=== PATIENT | male | born 1945 | race Caucasian/White ===

== ENCOUNTER 2017-11-22 11:36 | Emergency (ER) | payer MEDICARE, OTHER ==
[~2017-11-22] VITALS: Ht 180.3 cm; Wt 72.6 kg
[~2017-11-22 11:36] MED LIST: ALBIPROI INH; ALBU90OI61 INH; ALMASICH PO; ALUMAGSIMA PO; AMLO5 PO; ASCO500 PO; ASPI81CH PO; ASPI81EC PO; ATEN50 PO; ATORVASTATIN CA20 MG PO; AZIT250 PO; COMBIVENT RESPIM4 GM INH; EZET10-10 PO; EZET10-20 PO; FLUSAL2505 IH; HYDCHL12.5 PO; IBUP600 PO; IPRAOI INH; ISOMON30 PO; Isosorbide Mono30 MG PO; Isosorbide Mono60 MG PO; LIDO5TP TOP; LISHYD1012 PO; LOSA50 PO; LOSARTAN POTAS100 MG PO; METO50ER PO; MULTI VIT QD; MULVITMIND PO; NEBI10 PO; Norco 5-325 Ta1 EACH PO; OLME20-12. PO; OMEP20ER PO; Omeprazole20 M1 PO; POTBIC25; POTCHL20ER PO; PRED20 PO; Prednisone20 MG PO; RANO500T PO; Triamcinolone A15 G3 TP
[2017-11-22] MEDS ORDERED: NEBI5 PO (12:43)
[2017-11-22] MEDS ORDERED: POTCHL10ER PO (12:43)
[2017-11-22 12:45] LABS: BASOPHILS ABSOLUTE AUTO 0.03 K/mm3 (0.00-0.23); BASOPHILS PERCENT AUTO 0 % (0-2); EOSINOPHILS ABSOLUTE AUTO 0.25 K/mm3 (0.00-0.68); EOSINOPHILS PERCENT AUTO 3 % (0-6); Hematocrit 39.7 % (37.0-53.0); Hemoglobin 12.6 g/dL (13.5-17.5); IMMATURE GRAN ABSOLUTE AUTO 0.04 K/mm3 (0.00-0.10); IMMATURE GRAN PERCENT AUTO 1 % (0-1); LYMPHOCYTES ABSOLUTE AUTO 1.85 K/mm3 (0.84-5.20); LYMPHOCYTES PERCENT AUTO 21 % (21-46); MONOCYTES ABSOLUTE AUTO 0.72 K/mm3 (0.16-1.47); MONOCYTES PERCENT AUTO 8 % (4-13); Mean Corpuscular HGB Conc 31.7 g/dL (31.5-36.5); Mean Corpuscular Volume 92 fL (80-100); Mean Platelet Volume 8.9 fL (9.1-12.4); NEUTROPHILS ABSOLUTE AUTO 5.91 K/mm3 (1.96-9.15); NEUTROPHILS PERCENT AUTO 67 % (41-73); Platelet Count 214 K/mm3 (150-400); RDW Coefficient Variation 14.2 % (11.7-14.2); RDW Standard Deviation 48.1 fL (35.1-46.3); Red Blood Cell Count 4.34 M/mm3 (4.30-5.90)
[2017-11-22 13:00] LABS: Alanine Aminotransfer (ALT/SGP 64 U/L (12-78); Albumin/Globulin Ratio 0.6 (0.8-1.8); Alk Phos 100 U/L (50-136); Anion Gap 4 mmol/L (6-16); Aspartate Aminotrans (AST/SGOT 48 U/L (12-37); Bilirubin, Total 0.5 mg/dL (0.1-1.0); Blood Urea Nitrogen 28 mg/dL (8-24); Bun/Creatinine Ratio 26.4 (12.0-20.0); CO2, Blood 27 mmol/L (21-32); Chloride, Blood 108 mmol/L (98-108); Creatinine, Blood 1.06 mg/dL (0.60-1.20); Globulin, Blood 5.4 g/dL (2.2-4.0); Glomerular Filtration Rate >60 (60-); Glucose, Blood 85 mg/dL (70-99); Potassium, Blood 4.5 mmol/L (3.5-5.5); Sodium, Blood 139 mmol/L (136-145); Total Protein, Blood 8.4 g/dL (6.4-8.2); Troponin I <0.015 ng/mL (0.000-0.040)
== END 2017-11-22 14:01 | disposition home or self-care (01) ==
LOC: ER 11:36
PROVIDERS: Emergency Medicine
DX: R55 Syncope and collapse (principal); E86.0 Dehydration; Z79.899 Other long term (current) drug therapy; Z79.82 Long term (current) use of aspirin; Z79.52 Long term (current) use of systemic steroids; I10 Essential (primary) hypertension; J44.9 Chronic obstructive pulmonary disease, unspecified; I25.2 Old myocardial infarction; Z87.891 Personal history of nicotine dependence
CPT/HCPCS: 36415; 71046; 80053; 84484; 85025; 93005; 93010; 96360; 99283; J7030

== ENCOUNTER → 2020-07-05 | Outpatient (CLI) | payer MEDICARE, OTHER ==
[~2020-07-05] MED LIST changes: +NEBI5 PO; +POTCHL10ER PO
[2020-07-07 05:50] LABS: Stool Occult Bld Immuno 1 Negative (NEGATIVE)
== END | disposition home or self-care (01) ==
LOC: LAB SHORT 09:30 → LAB 09:30
PROVIDERS: Family Medicine
DX: D64.9 Anemia, unspecified (principal)
CPT/HCPCS: G0328

== ENCOUNTER 2020-12-15 09:52 | Observation (INO) | payer MEDICARE, OTHER ==
[~2020-12-15] VITALS: Ht 177.8 cm; Wt 66.7 kg
[~2020-12-15 09:52] MED LIST changes: +Aspirin EC81 MG PO; +COMBIVENT RESPIM4 G1 INH; +Hair, Skin & N1 EACH PO; -MULVITMIND PO; +RANEXA1000 M1 PO; -RANO500T PO
[2020-12-15] MEDS ORDERED: ISODIN10 PO (10:09)
[2020-12-15] MEDS ORDERED: FUROSEMIDE20 MG PO (10:09)
[2020-12-15] MEDS ORDERED: NITR.4SL SL (10:10)
[2020-12-15 10:30] LABS: BASOPHILS ABSOLUTE AUTO 0.02 K/mm3 (0.00-0.23); BASOPHILS PERCENT AUTO 0 % (0-2); EOSINOPHILS ABSOLUTE AUTO 0.22 K/mm3 (0.00-0.68); EOSINOPHILS PERCENT AUTO 3 % (0-6); Hemoglobin 10.3 g/dL (13.5-17.5); IMMATURE GRAN ABSOLUTE AUTO 0.03 K/mm3 (0.00-0.10); IMMATURE GRAN PERCENT AUTO 0 % (0-1); LYMPHOCYTES ABSOLUTE AUTO 1.46 K/mm3 (0.84-5.20); LYMPHOCYTES PERCENT AUTO 22 % (21-46); MONOCYTES ABSOLUTE AUTO 0.49 K/mm3 (0.16-1.47); MONOCYTES PERCENT AUTO 7 % (4-13); Mean Corpuscular HGB 27.6 pg (26.0-34.0); Mean Corpuscular HGB Conc 31.2 g/dL (31.5-36.5); Mean Corpuscular Volume 89 fL (80-100); Mean Platelet Volume 9.3 fL (9.1-12.4); NEUTROPHILS ABSOLUTE AUTO 4.54 K/mm3 (1.96-9.15); NEUTROPHILS PERCENT AUTO 67 % (41-73); Platelet Count 171 K/mm3 (150-400); RDW Coefficient Variation 17.2 % (11.7-14.2); RDW Standard Deviation 55.1 fL (35.1-46.3); Red Blood Cell Count 3.73 M/mm3 (4.30-5.90); White Blood Cell Count 6.76 K/mm3 (4.00-11.30)
[2020-12-15 10:40] LABS: Alanine Aminotransfer (ALT/SGP 60 U/L (12-78); Albumin, Blood 3.1 g/dL (3.4-5.0); Albumin/Globulin Ratio 0.7 (0.8-1.8); Alk Phos 105 U/L (50-136); Anion Gap 1 mmol/L (6-16); Aspartate Aminotrans (AST/SGOT 41 U/L (12-37); Bilirubin, Total 0.4 mg/dL (0.1-1.0); Blood Urea Nitrogen 33 mg/dL (8-24); Bun/Creatinine Ratio 30.3 (12.0-20.0); CO2, Blood 29 mmol/L (21-32); Calcium, Blood 8.6 mg/dL (8.5-10.1); Chloride, Blood 108 mmol/L (98-108); Creatinine, Blood 1.09 mg/dL (0.60-1.20); Globulin, Blood 4.6 g/dL (2.2-4.0); Glomerular Filtration Rate >60 (60-); Glucose, Blood 116 mg/dL (70-99); Potassium, Blood 4.3 mmol/L (3.5-5.5); Sodium, Blood 138 mmol/L (136-145); Total Protein, Blood 7.7 g/dL (6.4-8.2); Troponin I <0.015 ng/mL (0.000-0.040)
[2020-12-15] MEDS ORDERED: FLUTICASONE-SA1 EAC9 INH (13:20)
--- NOTE | 2020-12-15 18:57 | NUR ---
SHIFT SUMMARY PT ADMITTED TO UNIT FROM ED AT 1750 THIS SHIFT. PT A&OX4, ABLE TO MAKE NEEDS KNOWN. PLEASANT AND COOPERATIVE TO CARE. [place], RIMMA HEARING AIDS IN PLACE. PT IS A GOOD HISTORIAN. NO C/O PAIN OR ANY DISCOMFORT UPON ASSESSMENT. NO C/O CP, SOB, OR N&V. LS DIM T/O, RESPS E/U IN RA. PT ON TELE AT NSR 71 BPM. BED AT LOWEST POSITION. CALL LIGHT WITHIN REACH. GAVE REPORT TO MAGDALENA ASHER.
[2020-12-15 21:40] LABS: Stool Occult Bld Immuno 1 Negative (NEGATIVE)
[2020-12-16 02:21] LABS: BASOPHILS ABSOLUTE AUTO 0.02 K/mm3 (0.00-0.23); BASOPHILS PERCENT AUTO 0 % (0-2); EOSINOPHILS ABSOLUTE AUTO 0.19 K/mm3 (0.00-0.68); EOSINOPHILS PERCENT AUTO 4 % (0-6); Hematocrit 29.8 % (37.0-53.0); Hemoglobin 9.7 g/dL (13.5-17.5); IMMATURE GRAN ABSOLUTE AUTO 0.01 K/mm3 (0.00-0.10); IMMATURE GRAN PERCENT AUTO 0 % (0-1); LYMPHOCYTES ABSOLUTE AUTO 1.55 K/mm3 (0.84-5.20); LYMPHOCYTES PERCENT AUTO 29 % (21-46); MONOCYTES ABSOLUTE AUTO 0.46 K/mm3 (0.16-1.47); MONOCYTES PERCENT AUTO 9 % (4-13); Mean Corpuscular HGB 27.7 pg (26.0-34.0); Mean Corpuscular HGB Conc 32.6 g/dL (31.5-36.5); Mean Corpuscular Volume 85 fL (80-100); Mean Platelet Volume 9.1 fL (9.1-12.4); NEUTROPHILS ABSOLUTE AUTO 3.14 K/mm3 (1.96-9.15); NEUTROPHILS PERCENT AUTO 58 % (41-73); Platelet Count 140 K/mm3 (150-400); RDW Coefficient Variation 16.9 % (11.7-14.2); RDW Standard Deviation 52.3 fL (35.1-46.3); White Blood Cell Count 5.37 K/mm3 (4.00-11.30)
[2020-12-16 02:41] LABS: Alanine Aminotransfer (ALT/SGP 48 U/L (12-78); Albumin, Blood 2.9 g/dL (3.4-5.0); Albumin/Globulin Ratio 0.7 (0.8-1.8); Alk Phos 97 U/L (50-136); Anion Gap 3 mmol/L (6-16); Aspartate Aminotrans (AST/SGOT 36 U/L (12-37); Bilirubin, Total 0.4 mg/dL (0.1-1.0); Blood Urea Nitrogen 25 mg/dL (8-24); Bun/Creatinine Ratio 22.5 (12.0-20.0); CO2, Blood 26 mmol/L (21-32); Calcium, Blood 8.3 mg/dL (8.5-10.1); Chloride, Blood 107 mmol/L (98-108); Creatinine, Blood 1.11 mg/dL (0.60-1.20); Globulin, Blood 3.9 g/dL (2.2-4.0); Glomerular Filtration Rate >60 (60-); Glucose, Blood 76 mg/dL (70-99); Potassium, Blood 4.1 mmol/L (3.5-5.5); Sodium, Blood 136 mmol/L (136-145); Total Protein, Blood 6.8 g/dL (6.4-8.2); Troponin I <0.015 ng/mL (0.000-0.040)
--- NOTE | 2020-12-16 05:34 | NUR ---
PT IS A/O, AND VERY PLEASANT. TELE IN SR, NEGATIVE GUIAC RESULTS THIS SHIFT, PT WALKS TO RESTROOM WITH STABLE GAIT, KALISPEL. PT AWAITING CARDIOLOGY CONSULT TODAY.
--- NOTE | 2020-12-16 12:09 | NUR ---
Echocardiogram performed
--- NOTE | 2020-12-16 14:02 | NUR ---
ADMIT: 12/15/20 DISCHARGE: 12/16/20 DX: Syncope CC: [email or web address] [facility] CALL: pt at [phone] ([facility] clinic, 1 week) RESIDENCE: home CAREGIVER: Gricel Hassan, Family Member, [phone] DX: HTN, vertigo, CKD-stage 3, CHF, COPD, see list DME: none CCM: none HOME HEALTH: none SUMMARY: Admit: 12/15/20 12/16/20- Per chart review with Dr. Cortez, pt has had CABG x2 and there does not appear to be any further option for revascularization treatment. Cardiology has consulted on pt while in the hospital. Chest CT and echocardiogram was ordered and completed. Chest CT showed that pt has 10mm right upper lobe pulmonary nodule and several smaller nodules. Zio patch is ordered for pt to have placed at discharge. Met with pt and reviewed [facility] letter with pt. Pt reports that his sister will be the one to come get him and take him home and she will be able to help him with any needs in the home. His pharmacy is [facility]. Pt reports that there are 2 small stairs to get into the home and he does not have any concerns using them. Pt stated that he does not have any concerns about going home. -ascencion
--- NOTE | 2020-12-16 16:57 | NUR ---
DISCHARGE SUMMARY PT DISCHARGE TODAY AT APPROX 1650. PRIOR TO DISCHARGE, PT SEEN BY CARDIOLOGY STAFF FOR ZIO MONITOR PLACEMENT. NO ISSUES OR COMPLAINTS NOTED TO PT DURING DISCHARGE PROCESS. NO ACUTE CHANGES NOTED TO PT THIS SHIFT. NO C/O PAIN OR ANY DISCOMFORT. REVIEWED D/C ORDERS. PT VERBALIZED UNDERSTANDING OF DISCHARGE ORDERS. DISCHARGE PAPERWORK GIVEN TO PT UPON DISCHARGE. IV ACCESS AND TELE MONITOR DISCONTINUED.
== END 2020-12-16 16:47 | disposition home or self-care (01) ==
LOC: ER 09:52 → MEDS 09:53 → ER 09:53 → MEDS 09:54 → ER 15:38 → MEDS 15:38
PROVIDERS: Emergency Medicine; ADMIT Student in an Organized Health Care Education/Training Program
DX: R55 Syncope and collapse (principal); N39.498 Other specified urinary incontinence; I11.0 Hypertensive heart disease with heart failure; I50.32 Chronic diastolic (congestive) heart failure; I25.118 Atherosclerotic heart disease of native coronary artery with other forms of angina pectoris; J44.9 Chronic obstructive pulmonary disease, unspecified; I25.2 Old myocardial infarction; E78.5 Hyperlipidemia, unspecified; K21.9 Gastro-esophageal reflux disease without esophagitis; D50.9 Iron deficiency anemia, unspecified; R05 Cough; I95.1 Orthostatic hypotension; R00.1 Bradycardia, unspecified; R91.1 Solitary pulmonary nodule; R63.4 Abnormal weight loss; K74.60 Unspecified cirrhosis of liver; I87.2 Venous insufficiency (chronic) (peripheral); Z95.1 Presence of aortocoronary bypass graft; Z79.82 Long term (current) use of aspirin; Z87.891 Personal history of nicotine dependence; Z79.899 Other long term (current) drug therapy
CPT/HCPCS: 36415; 70450; 71045; 71260; 80053; 82274; 83880; 84484; 85025; 93005; 93010; 93246; 93306; 93880; 94640; 94760; 99285-25; A9270; A9270-GY; G0378; J1650; Q9967

== ENCOUNTER → 2023-08-21 | Outpatient (CLI) | payer MEDICARE, OTHER ==
[~2023-08-21] MED LIST changes: +FLUTICASONE-SA1 EAC9 INH; +FUROSEMIDE20 MG PO; +ISODIN10 PO; +NITR.4SL SL
[2023-08-23 12:00] LABS: Stool Occult Bld Immuno 1 Negative (NEGATIVE)
== END ==
LOC: LAB SHORT 23:30 → LAB 23:30
PROVIDERS: Family Medicine
DX: D64.9 Anemia, unspecified (principal)
CPT/HCPCS: 82274

== ENCOUNTER 2023-08-23 13:34 | Emergency (ER) | payer MEDICARE, OTHER ==
[~2023-08-23] VITALS: Ht 177.8 cm; Wt 59.9 kg
[2023-08-23 14:36] LABS: BASOPHILS ABSOLUTE AUTO 0.03 K/mm3 (0.00-0.23); BASOPHILS PERCENT AUTO 1 % (0-2); EOSINOPHILS ABSOLUTE AUTO 0.19 K/mm3 (0.00-0.68); EOSINOPHILS PERCENT AUTO 3 % (0-6); Hematocrit 38.2 % (37.0-53.0); Hemoglobin 12.4 g/dL (13.5-17.5); IMMATURE GRAN ABSOLUTE AUTO 0.01 K/mm3 (0.00-0.10); IMMATURE GRAN PERCENT AUTO 0 % (0-1); LYMPHOCYTES ABSOLUTE AUTO 1.74 K/mm3 (0.84-5.20); LYMPHOCYTES PERCENT AUTO 31 % (21-46); MONOCYTES ABSOLUTE AUTO 0.55 K/mm3 (0.16-1.47); MONOCYTES PERCENT AUTO 10 % (4-13); Mean Corpuscular HGB 30.1 pg (26.0-34.0); Mean Corpuscular HGB Conc 32.5 g/dL (31.5-36.5); Mean Corpuscular Volume 93 fL (80-100); Mean Platelet Volume 9.8 fL (9.1-12.4); NEUTROPHILS PERCENT AUTO 55 % (41-73); Platelet Count 191 K/mm3 (150-400); RDW Coefficient Variation 15.1 % (11.7-14.2); RDW Standard Deviation 51.2 fL (35.1-46.3); Red Blood Cell Count 4.12 M/mm3 (4.30-5.90); White Blood Cell Count 5.62 K/mm3 (4.00-11.30)
[2023-08-23 14:47] LABS: Albumin/Globulin Ratio 0.6 (0.8-1.8); Bilirubin, Total 0.5 mg/dL (0.1-1.0); Bun/Creatinine Ratio 21.6 (12.0-20.0); Calcium, Blood 9.3 mg/dL (8.5-10.1); Creatinine, Blood 1.25 mg/dL (0.60-1.20); Globulin, Blood 5.1 g/dL (2.2-4.0); Potassium, Blood 4.9 mmol/L (3.5-5.5); Total Protein, Blood 8.1 g/dL (6.4-8.2)
[2023-08-23 16:00] VITALS: BP 132/62
== END 2023-08-23 16:34 | disposition home or self-care (01) ==
LOC: ER 13:34
PROVIDERS: Emergency Medicine
DX: R55 Syncope and collapse (principal); I10 Essential (primary) hypertension; J44.9 Chronic obstructive pulmonary disease, unspecified; I25.2 Old myocardial infarction; Z79.82 Long term (current) use of aspirin; Z79.899 Other long term (current) drug therapy; Z87.891 Personal history of nicotine dependence
CPT/HCPCS: 80053; 85025; 93005; 93010; 99284-25

== ENCOUNTER 2024-07-30 13:46 | Inpatient (IN) | payer MEDICARE, OTHER ==
[2024-07-30] VITALS (7 sets, daily range): BP systolic 86–136; BP diastolic 65–88
[~2024-07-30] VITALS: Ht 172.7 cm; Wt 61.3 kg
[~2024-07-30 13:46] MED LIST changes: -Omeprazole20 M1 PO
[2024-07-30] MEDS ORDERED: Ipratropium/Albuterol SulF 2.5-0.5MG/3 ML Amp INH PRN (14:10)
[2024-07-30 14:45] LABS: BASOPHILS ABSOLUTE AUTO 0.02 K/mm3 (0.00-0.23); BASOPHILS PERCENT AUTO 0 % (0-2); EOSINOPHILS ABSOLUTE AUTO 0.11 K/mm3 (0.00-0.68); EOSINOPHILS PERCENT AUTO 1 % (0-6); Hematocrit 34.5 % (37.0-53.0); Hemoglobin 11.2 g/dL (13.5-17.5); IMMATURE GRAN ABSOLUTE AUTO 0.02 K/mm3 (0.00-0.10); IMMATURE GRAN PERCENT AUTO 0 % (0-1); LYMPHOCYTES ABSOLUTE AUTO 1.54 K/mm3 (0.84-5.20); LYMPHOCYTES PERCENT AUTO 19 % (21-46); MONOCYTES ABSOLUTE AUTO 1.08 K/mm3 (0.16-1.47); MONOCYTES PERCENT AUTO 14 % (4-13); Mean Corpuscular HGB 30.4 pg (26.0-34.0); Mean Corpuscular HGB Conc 32.5 g/dL (31.5-36.5); Mean Corpuscular Volume 94 fL (80-100); Mean Platelet Volume 9.9 fL (9.1-12.4); NEUTROPHILS ABSOLUTE AUTO 5.24 K/mm3 (1.96-9.15); NEUTROPHILS PERCENT AUTO 66 % (41-73); Platelet Count 203 K/mm3 (150-400); RDW Coefficient Variation 15.9 % (11.7-14.2); RDW Standard Deviation 54.2 fL (35.1-46.3); Red Blood Cell Count 3.68 M/mm3 (4.30-5.90); White Blood Cell Count 8.01 K/mm3 (4.00-11.30)
[2024-07-30 15:08] LABS: Albumin/Globulin Ratio 0.6 (0.8-1.8); Bilirubin, Total 1.2 mg/dL (0.1-1.0); Calcium, Blood 9.3 mg/dL (8.5-10.1); Creatinine, Blood 1.5 mg/dL (0.60-1.20); Globulin, Blood 5.1 g/dL (2.2-4.0); Potassium, Blood 4.8 mmol/L (3.5-5.5); Total Protein, Blood 8.1 g/dL (6.4-8.2)
[2024-07-30] MEDS ORDERED: METOPROLOL SUCC25 MG PO (15:14)
[2024-07-30] MEDS ORDERED: Isosorbide Dinit5 MG PO (15:15)
[2024-07-30] MEDS ORDERED: BREZTRI AEROS10.7 GM INH (15:16)
[2024-07-30] MEDS ORDERED: K-TAB ER20 ME1 PO (15:17)
[2024-07-30] MEDS ORDERED: Iron Chews15 MG PO (15:19)
[2024-07-30] MEDS ORDERED: VITAMIN D31000 UNI1 PO (15:19)
[2024-07-30] MEDS ORDERED: COQ-10100 MG PO (15:20)
[2024-07-30 16:56] LABS: Anti-Xa UFH, PHA Monitoring <0.10 IU/mL; Prothrombin Time Results 12.7 Sec (9.7-11.5)
[2024-07-30] MEDS ORDERED: Heparin Sodium 5000 Units/ML 1ML MDV IV ONE (17:05)
[2024-07-30] MEDS ORDERED: Heparin Sodium,Porcine/0.5 NS 500 ML IV SCH (17:05)
[2024-07-30] MEDS ORDERED: Nitroglycerin 0.4 MG SUBL SL PRN (17:50)
[2024-07-30] MEDS ORDERED: Ondansetron HCl 2 MG / ML 2ML Vial IV PRN (18:05)
[2024-07-30] MEDS ORDERED: Metoclopramide HCl 5MG / ML 2ML Vial IV PRN (18:10)
[2024-07-30] MEDS ORDERED: Temazepam 15 MG Cap PO PRN (18:10)
[2024-07-30] MEDS ORDERED: FLU VACC TS2024-25(6MOS UP)/PF 45 MCG/0.5 ML SYRINGE IM SCH (18:10)
[2024-07-30] MEDS ORDERED: Ondansetron 4 MG TAB PO PRN (18:10)
[2024-07-30] MEDS ORDERED: Acetaminophen 325 MG TABLET PO PRN (18:10)
[2024-07-30] MEDS ORDERED: Atorvastatin 40 MG Tab PO SCH (21:00)
[2024-07-30] MEDS ORDERED: Ranolazine 500 MG ER Tablet PO SCH (21:00)
[2024-07-30] MEDS ORDERED: Misc. Inhaler INH SCH (21:00)
[2024-07-30] MEDS ORDERED: Furosemide 40 MG Tab PO SCH (21:00)
--- NOTE | 2024-07-30 21:01 | NUR ---
NPO ORDER. PT DOES NOT HAVE TO BE NPO UNTIL THE AM PER MD. NPO FOR POSSIBLE CARDIAC INTERVENTIONS 07-31-24.
--- NOTE | 2024-07-30 22:08 | NUR ---
[facility] DOES NOT CARRY THIS MED. WILL NEED TO BE BROUGHT IN FROM HOME AND VERIFIED BY PHARMACY.
--- NOTE | 2024-07-30 23:44 | NUR ---
TRANSFER NOTE PT TRANSFERED VIA WC FROM ICU 8 TO PCU 4. RECEIVED BEDSIDE REPORT FROM SENIOR PARALEGAL SHILA CASTRO. PT A/Ox4 AND COOPERATIVE WITH CARE. [place], BUT ABLE TO MAKE HIS NEEDS KNOWN. CARDIAC, TELEMETRY SHOWS SR-ST 90-100'S WITH NO REPORTS OF CP, PRESSURE OR DIZZINESS. SBP STABLE RANGING 130'S. RESPIRATORY, LS CLEAR BUT DIM IN THE BASES. MAINTAINING SPO2 >95% ON 2L NC. ENDORSES MILD EXERTIONAL DYSPNEA, NO SOB AT REST. GI/, BS PRESENT IN ALL QUADRANTS. DENIES N/V/D OR ABD TENDERNESS. SKIN C/D/I, BUT FRAGILE SKIN WITH SCATTERED BRUISING NOTED. OPEN WOUND NOTED ON LEFT FOOT FROM [facility], FOLLOWED OUTPATIENT BY PODIATRY PER PT. 1x18g INFUSING HEPARIN PER EMAR IN [facility]. NO NEW ORDERS AT THIS TIME. LAZARO ROSEN UPON ARRIVAL TO PCU.
[2024-07-31] VITALS (22 sets, daily range): BP systolic 80–139; BP diastolic 49–85
[2024-07-31] MEDS ORDERED: Dose Adjust by Pharmacy XX STA (01:22)
[2024-07-31 03:39] LABS: BASOPHILS ABSOLUTE AUTO 0.01 K/mm3 (0.00-0.23); BASOPHILS PERCENT AUTO 0 % (0-2); EOSINOPHILS PERCENT AUTO 2 % (0-6); Hematocrit 28.5 % (37.0-53.0); Hemoglobin 9.3 g/dL (13.5-17.5); IMMATURE GRAN ABSOLUTE AUTO 0.02 K/mm3 (0.00-0.10); IMMATURE GRAN PERCENT AUTO 0 % (0-1); LYMPHOCYTES ABSOLUTE AUTO 1.22 K/mm3 (0.84-5.20); LYMPHOCYTES PERCENT AUTO 21 % (21-46); MONOCYTES ABSOLUTE AUTO 0.76 K/mm3 (0.16-1.47); MONOCYTES PERCENT AUTO 13 % (4-13); Mean Corpuscular HGB 30.8 pg (26.0-34.0); Mean Corpuscular HGB Conc 32.6 g/dL (31.5-36.5); Mean Corpuscular Volume 94 fL (80-100); Mean Platelet Volume 9.6 fL (9.1-12.4); NEUTROPHILS ABSOLUTE AUTO 3.72 K/mm3 (1.96-9.15); NEUTROPHILS PERCENT AUTO 64 % (41-73); Platelet Count 120 K/mm3 (150-400); RDW Coefficient Variation 15.7 % (11.7-14.2); RDW Standard Deviation 54.1 fL (35.1-46.3); Red Blood Cell Count 3.02 M/mm3 (4.30-5.90); White Blood Cell Count 5.83 K/mm3 (4.00-11.30)
[2024-07-31 04:08] LABS: Albumin, Blood 2.4 g/dL (3.4-5.0); Albumin/Globulin Ratio 0.5 (0.8-1.8); Bilirubin, Total 0.9 mg/dL (0.1-1.0); Bun/Creatinine Ratio 22.6 (12.0-20.0); Calcium, Blood 9.1 mg/dL (8.5-10.1); Creatinine, Blood 1.64 mg/dL (0.60-1.20); Globulin, Blood 4.5 g/dL (2.2-4.0); Potassium, Blood 4.7 mmol/L (3.5-5.5); Total Protein, Blood 6.9 g/dL (6.4-8.2)
[2024-07-31] MEDS ORDERED: NS 1,000 ML IV SCH (05:25)
--- NOTE | 2024-07-31 05:50 | NUR ---
SHIFT SUMMARY NO ACUTE CHANGES SINCE ARRIVAL TO PCU NOTE. SEE NOTE FOR DETAILS. URINE NOTED TO BE INCREASING IN TEA COLOR WELL DECREASING KIDNEY FUNCTION WITH AM LABS. DR. HARDING NOTIFIED WITH HYDRATION FLUIDS AND BNP CHECK ORDERED FOR THIS AM. CONTINUES TO DENY CP, PRESSURE OR DIZZINESS. HEPARIN gtt INFUSING ORDERED PER EMAR. HAS BEEN NPO THIS AM FOR POTENTIAL PROCEDURE. NO NEW ORDERS AT THIS TIME, WILL REPORT TO ONCOMING RN. LAZARO ROSEN OF THIS NOTE.
[2024-07-31] MEDS ORDERED: Omeprazole 20 MG CapCR PO SCH (06:00)
[2024-07-31] MEDS ORDERED: Potassium Chloride 20 MEQ TabCR PO SCH (08:00)
[2024-07-31] MEDS ORDERED: GLYCOPYRROLATE INH SCH (08:15)
[2024-07-31] MEDS ORDERED: FORMOTEROL INH SCH (08:15)
[2024-07-31] MEDS ORDERED: BUDESONIDE INH SCH (08:15)
[2024-07-31] MEDS ORDERED: Metoprolol Succinate 25 MG TABCR PO SCH (09:00)
[2024-07-31] MEDS ORDERED: Misc. Tablet PO SCH ×2 (09:00)
[2024-07-31] MEDS ORDERED: Multivitamins/Minerals TAB PO SCH (09:00)
[2024-07-31] MEDS ORDERED: Aspirin 81 MG TabEC PO SCH (09:00)
[2024-07-31] MEDS ORDERED: Cholecalciferol 1000 Unit Tablet (=25MCG) PO SCH (09:00)
[2024-07-31] MEDS ORDERED: Midodrine 2.5 MG Tab PO SCH ×2 (11:16→13:00)
--- NOTE | 2024-07-31 12:38 | NUR ---
ASSUMPTION OF CARE / UPDATE ASSUMED CARE OF PT AT 0700. THIS RN AT BEDSIDE WHEN AIRPLANE GASTANK LINER ASSEMBLER ROUNDED ON PT AT APPROXIMATELY 0730. PT A&Ox4, CALLS AND COMMUNICATES NEEDS APPROPRIATELY. BP SOFT WITH SBP 80-90's, MAP> 60, ASYMPTOMATIC, AIRPLANE GASTANK LINER ASSEMBLER AT BEDSIDE, ORDERS PLACED. SINUS-SINUS TACH 80-100's, DENIES CP/PRESSURE. SpO2> 92% RA, REPORTS MILD SOB WHEN LYING FLAT, WORSENING SOB WITH ACTIVITY. ASSESSING BP EVERY 30 MINUTES. PTs SISTER TO BEDSIDE AT APPROXIMATELY 0930. THIS RN IN ROOM TO ASSESS BP AND PT SYMPTOMS; PTs SISTER ON PHONE AND UNAVAILABLE FOR UPDATE. AT APPROXIMATELY 1000 CONSULTING HR PROFESSIONAL AND THIS RN GIVING PT BEDBATH, SISTER SILL ON PHONE AND UNAVAILIABLE FOR UPDATE. THIS RN HAS BEEN IN ROOM MULTIPLE TIMES ASSESSING PT AND DOING MANUAL BPs, THIS RN WAITING TO GIVE SISTER UPDATE AND SISTER PUT FINGER UP TO SIGNAL TO HOLD ON. WHEN PTs SISTER WAS OFF THE PHONE, THIS RN GAVE SISTER UPDATE ON PT SITUATION. SISTER IS AGITATED AND RAISING VOICE RESULTING IN DOOR NEEDING TO BE CLOSED TO AVOID DISTURBING OTHER PTs. THIS RN AND DETENTION ATTENDANT ABLE TO DEESCULATE AND PROVIDE REASSURANCE. PTs SISTER STATINGTHAT SHE HASN'T EATEN AT ALL TODAY AND STATED THAT SHE WAS HUNGRY, MULTIPLE TIMES THIS RN AND CONSULTING HR PROFESSIONAL HAVE OFFERED SISTER SNACKS FROM THE [place] AND TO TAKE HER TO THE [place], SISTER HAS REFUSED ALL OFFERINGS.
--- NOTE | 2024-07-31 14:13 | NUR ---
CARE ASSUMPTION ASSUMING CARE OF PT APPROX 1345. PT A&O, ABLE TO MAKE NEEDS KNOWN. TELEMETRY READS NSR, HR 70'S. MD T IN ROOM UPDATING PT ON PT DX. SISTER IN ROOM. CALL LIGHT IN REACH.
[2024-07-31 14:24] LABS: BASOPHILS ABSOLUTE AUTO 0.03 K/mm3 (0.00-0.23); BASOPHILS PERCENT AUTO 1 % (0-2); EOSINOPHILS ABSOLUTE AUTO 0.07 K/mm3 (0.00-0.68); EOSINOPHILS PERCENT AUTO 1 % (0-6); Hematocrit 29.1 % (37.0-53.0); Hemoglobin 9.5 g/dL (13.5-17.5); IMMATURE GRAN ABSOLUTE AUTO 0.05 K/mm3 (0.00-0.10); IMMATURE GRAN PERCENT AUTO 1 % (0-1); LYMPHOCYTES ABSOLUTE AUTO 1.23 K/mm3 (0.84-5.20); LYMPHOCYTES PERCENT AUTO 19 % (21-46); MONOCYTES ABSOLUTE AUTO 0.61 K/mm3 (0.16-1.47); MONOCYTES PERCENT AUTO 10 % (4-13); Mean Corpuscular HGB 30.5 pg (26.0-34.0); Mean Corpuscular HGB Conc 32.6 g/dL (31.5-36.5); Mean Corpuscular Volume 94 fL (80-100); Mean Platelet Volume 10.3 fL (9.1-12.4); NEUTROPHILS ABSOLUTE AUTO 4.39 K/mm3 (1.96-9.15); NEUTROPHILS PERCENT AUTO 69 % (41-73); Platelet Count 129 K/mm3 (150-400); RDW Coefficient Variation 15.9 % (11.7-14.2); RDW Standard Deviation 54.3 fL (35.1-46.3); Red Blood Cell Count 3.11 M/mm3 (4.30-5.90); White Blood Cell Count 6.38 K/mm3 (4.00-11.30)
--- NOTE | 2024-07-31 17:12 | NUR ---
SHIFT SUMMARY SEE PREVIOUS NOTE. PT A&Ox4, CALLS AND COMMUNICATES NEEDS APPROPRIATELY. SOFT BP IMPROVING, MAP> 60, ASYMPTOMATIC, DENIES CP/PRESSURE. SR-ST 60-90's, LBBB. SpO2. 92% RA, REPORTS MILD SOB WHEN LYING FLAT, WORSENING WITH ACTIVITY. D/T SOB AND BP, PT REMAINED BEDREST THIS SHIFT, Q2 TURNS PROVIDED. CONTINENT OF URINE, OLIGURIA AND URINE IS LOUISE. NO BM THIS SHIFT. DENIES PAIN. NO OTHER EVENTS, WILL REPORT TO ONCOMING RN.
--- NOTE | 2024-07-31 20:41 | NUR ---
WHEN CONFIRMING CODE STATUS WITH PATIENT HE EXPRESSED WISHES TO NOT HAVE CPR PERFORMMED ON HIM. RESIDENT NOTIFIED
--- NOTE | 2024-07-31 22:51 | NUR ---
SHIFT SUMMARY NEURO: WNL. BASELINE GENERALIZED WEAKNESS. CARDIAC: HR 70'S-80'S, BBB WITH OCCASIONAL PVC'S. DOPPLER PULSES BLE. +1 EDEMA BLE. NO CP AT THIS TIME. LUNGS: ON RA, CLEAR. GI/: TEA COLORED URINE.
[2024-08-01] VITALS (21 sets, daily range): BP systolic 77–135; BP diastolic 51–87
[2024-08-01 03:32] LABS: BASOPHILS ABSOLUTE AUTO 0.02 K/mm3 (0.00-0.23); BASOPHILS PERCENT AUTO 0 % (0-2); EOSINOPHILS ABSOLUTE AUTO 0.09 K/mm3 (0.00-0.68); EOSINOPHILS PERCENT AUTO 2 % (0-6); Hematocrit 25.5 % (37.0-53.0); Hemoglobin 8.6 g/dL (13.5-17.5); IMMATURE GRAN ABSOLUTE AUTO 0.02 K/mm3 (0.00-0.10); IMMATURE GRAN PERCENT AUTO 0 % (0-1); LYMPHOCYTES ABSOLUTE AUTO 1.42 K/mm3 (0.84-5.20); LYMPHOCYTES PERCENT AUTO 26 % (21-46); MONOCYTES ABSOLUTE AUTO 0.58 K/mm3 (0.16-1.47); MONOCYTES PERCENT AUTO 11 % (4-13); Mean Corpuscular HGB 31.3 pg (26.0-34.0); Mean Corpuscular HGB Conc 33.7 g/dL (31.5-36.5); Mean Corpuscular Volume 93 fL (80-100); Mean Platelet Volume 9.7 fL (9.1-12.4); NEUTROPHILS ABSOLUTE AUTO 3.41 K/mm3 (1.96-9.15); NEUTROPHILS PERCENT AUTO 62 % (41-73); Platelet Count 116 K/mm3 (150-400); RDW Coefficient Variation 15.7 % (11.7-14.2); RDW Standard Deviation 52.9 fL (35.1-46.3); Red Blood Cell Count 2.75 M/mm3 (4.30-5.90); White Blood Cell Count 5.54 K/mm3 (4.00-11.30)
--- NOTE | 2024-08-01 03:48 | NUR ---
PT REQUESTED NO 0400 ASSESSMENT AND VITALS, VERBALIZED UNDERSTANDING OF RISK AND BENEFITS.
[2024-08-01] MEDS ORDERED: Dose Adjust by Pharmacy XX STA (03:57)
[2024-08-01] MEDS ORDERED: Ipratropium/Albuterol SulF 2.5-0.5MG/3 ML Amp INH PRN (07:15)
[2024-08-01 08:21] LABS: Albumin, Blood 2.2 g/dL (3.4-5.0); Albumin/Globulin Ratio 0.5 (0.8-1.8); Bilirubin, Total 0.8 mg/dL (0.1-1.0); Bun/Creatinine Ratio 25.8 (12.0-20.0); Calcium, Blood 8.3 mg/dL (8.5-10.1); Creatinine, Blood 1.63 mg/dL (0.60-1.20); Globulin, Blood 4.2 g/dL (2.2-4.0); Potassium, Blood 4.1 mmol/L (3.5-5.5); Total Protein, Blood 6.4 g/dL (6.4-8.2)
[2024-08-01] MEDS ORDERED: Bumetanide 1 MG Tab PO SCH (09:00)
--- NOTE | 2024-08-01 12:59 | NUR ---
Met with the patient who goes by "Gene" and his sister Gricel at bedside. The patient has a significant cardiac history including CABG in 1980 and again in 2000. The patient states he and his sister live together and help each other with chores. The patient reports feeling concerned that his sister will not be ok if "anything happens" to him. However, he also states the drafter mechanical had been very honest and has essentially told him there is "no more they can do." He is agreeable to go on hospice services so he will have symptom control. CM will follow up to arrange it.
[2024-08-01] MEDS ORDERED: MIDO5 PO (13:51)
--- NOTE | 2024-08-01 16:44 | NUR ---
Spiritual care visit conducted. Patient is sitting on a chair and alert. He tells me about his poor diagnosis and prognosis. We then discuss his 34 year career in the [employer], his family history of heart disease and his strong Caodaism jeffrey. 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 We explore ways to process his hospice election and the his concern for Serina as he closes out his life. I provided therapeutic listening, gentle certified credit counselor, and theological insights. He welcomes prayer and all interventions have a great effect as he expresses deep gratitude for a very meaningful conversation.
--- NOTE | 2024-08-01 17:23 | NUR ---
SHIFT SUMMARY PT A&Ox4, CALLS AND COMMUNICATES NEEDS APPROPRIATELY. SOFT BP AT TIMES, MAP >65, ASYMPTOMATIC. SR-ST 80-90's, LBBB, DENIES CP/PRESSURE AT REST. SpO2> 92% RA, REPORTS MILD SOB WHEN LYING FLAT, WORSENING WITH ACTIVITY. PT's BP 70/40's AFTER AMBULATING TO BATHROOM, REPORTS MILD CHEST DISCOMFORT AND SOB, RELIEVED AFTER APPROXIMATELY 10 MINUTES OF REST. D/T SOB, BP, AND CP, PT DID NOT FEEL SAFE DISCHARGING HOME WITHOUT HOSPICE COMING TO SEE HIM THE SAME DAY, D/T THIS DISCHARGE HAS BEEN MOVED TO TOMORROW SO THAT HOSPICE SEE HIM THE SAME DAY HE GOES HOME. CONTINENT OF URINE, OLIGURIA AND URINE IS LOUISE. NO BM THIS SHIFT. DENIES PAIN. NO OTHER EVENTS, WILL REPORT TO ONCOMING RN.
[2024-08-02 03:53] VITALS: BP 113/69
--- NOTE | 2024-08-02 04:27 | NUR ---
SHIFT SUMMARY. SHIFT HAS BEEN UNREMARKABLE. PT AOX4, PLEASANT, COOPERATIVE WITH CARE, ABLE TO MAKE NEEDS KNOWN, CALLS APPROPRIATELY FOR ASSISTANCE. HAS BEEN ABLE TO REST COMFORTABLY THROUGHOUT MOST OF SHIFT THUS FAR. HAS CONTINUED TO DENY PAIN. PT REPORTED ONE EPISODE OF SOB EARLY IN SHIFT. WAS CONTINUING TO MAINTAIN ADEQUATE SATURATION ON ROOM AIR AT THE TIME AND REPORTED FEELING MUCH BETTER AFTER BREATHING TREATMENT. NO COMPLAINTS SINCE. URINE OUTPUT MINIMAL BUT CHARTED APPROPRIATELY. VITALS REMAIN STABLE. CONTINUES TO RUN SINUS ON TELE. BED LOCKED IN LOWEST POSITION. CALL LIGHT LEFT WITHIN REACH. CONTINUING TO MONITOR.
[2024-08-02 08:20] VITALS: BP 108/67
--- NOTE | 2024-08-02 09:51 | NUR ---
am note this rn assumed care at 0700 from mikey ricci and did bedside shift report. vital signs stable. spo2 >90% on room air. tele sinus rhythm 80s. patient is alert and oriented x4. neuro is intact. patient is able to make needs known. kate has generalized weakness and is a one assist with walker. patient becomes short of breath with any exertion and needs to take frequent breaks. patient becomes short of breath with tasks as putting his shirt on and moving in bed. lung sounds clear and dim. patient denies pain or chest pain/pressure. see shift assessment for further detials. this rn went over discharge paperwork at 0930 and patient verbalized understanding. patient left with transport at 1000. patient left with all belongings and in no distress.
== END 2024-08-02 10:10 | disposition hospice, home (50) | DRG 280 ==
LOC: ER 13:46 → ICUE 13:47 → PCU 13:47 → ICUE 13:47 → PCU 18:04 → ICUE 18:24 → PCU 22:44
PROVIDERS: Emergency Medicine; ADMIT Internal Medicine
DX: I21.4 Non-ST elevation (NSTEMI) myocardial infarction (principal); I50.43 Acute on chronic combined systolic (congestive) and diastolic (congestive) heart failure; I13.0 Hypertensive heart and chronic kidney disease with heart failure and stage 1 through stage 4 chronic kidney disease, or unspecified chronic kidney disease; N17.9 Acute kidney failure, unspecified; I25.810 Atherosclerosis of coronary artery bypass graft(s) without angina pectoris; I25.5 Ischemic cardiomyopathy; I25.10 Atherosclerotic heart disease of native coronary artery without angina pectoris; Z66 Do not resuscitate; J44.9 Chronic obstructive pulmonary disease, unspecified; N18.30 Chronic kidney disease, stage 3 unspecified; E78.5 Hyperlipidemia, unspecified; D63.1 Anemia in chronic kidney disease; K21.9 Gastro-esophageal reflux disease without esophagitis; R54 Age-related physical debility; I44.7 Left bundle-branch block, unspecified; I48.91 Unspecified atrial fibrillation; Z95.1 Presence of aortocoronary bypass graft; I25.2 Old myocardial infarction; Z87.891 Personal history of nicotine dependence; Z79.82 Long term (current) use of aspirin; Z88.8 Allergy status to other drugs, medicaments and biological substances
CPT/HCPCS: 36415; 71046; 80053; 83880; 84484; 85025; 85520; 85610; 85730; 92610; 93005; 93010; 93306; 94640; 94664; 94760; 94762; 96374; 96376; 97110; 97162; 99285-25; A9270; G0378; J1644; J7030